=== PATIENT | female | born 1940 | race Caucasian/White ===

== ENCOUNTER 2021-03-16 04:48 | Inpatient (IN) | payer BC, MEDICARE ==
[~2021-03-16] VITALS: Ht 162.6 cm; Wt 76.3 kg
[2021-03-16] MEDS ORDERED: SODIUM CHLORIDE 0.9% 1,000 ML IV ONE (05:45)
[2021-03-16 06:27] LABS: CLARITY URINE CLEAR (CLEAR); COLOR URINE YELLOW (YELLOW); KETONES URINE NEGATIVE (NEGATIVE); LEUKOCYTE ESTERASE URINE 1+ (NEGATIVE); NITRITE URINE NEGATIVE (NEGATIVE); OCCULT BLOOD URINE NEGATIVE (NEGATIVE); PH URINE 7.5 (4.5-8.0); PROTEIN URINE NEGATIVE (NEGATIVE); SPECIFIC GRAVITY URINE 1.008 (1.005-1.030); UROBILINOGEN URINE 0.2 E.U./dL (0.2-1.0)
[2021-03-16 09:20] LABS: BASOPHILS % 0.6 % (0.0-2.0); EOSINOPHILS % 0.3 % (0.0-5.0); HEMOGLOBIN. 13.2 g/dL (12.0-16.0); LYMPHOCYTES % 19.8 % (20.0-50.0); MEAN CORPUSCULAR HEMOGLOBIN 30.6 pg (28.0-32.0); MEAN CORPUSCULAR VOLUME 92.8 fL (81.0-99.0); MEAN PLATELET VOLUME 10.7 fl (7.4-10.4); NEUTROPHILS % 72.3 % (40.0-76.0); PLATELET 104 x1000/uL (130-400); RED BLOOD CELL COUNT 4.31 mill/uL (4.2-5.4); RED CELL DISTRIBUTION WIDTH 13.1 % (11.6-14.6)
[2021-03-16 09:27] LABS: CHLORIDE 110 mEq/L (98-107)
[2021-03-16] MEDS ORDERED: CEFTRIAXONE 1 G PREMIX 50 ML IV ONE (10:15)
[2021-03-16] MEDS ORDERED: ENOXAPARIN 80MG/0.8ML SYR SUBCUT ONE (11:00)
[2021-03-16] MEDS ORDERED: ASPIRIN 81MG TABLET PO ONE (11:00)
[2021-03-16] MEDS ORDERED: ONDANSETRON HCL 4MG/2ML INJ IV PRN (13:15)
[2021-03-16] MEDS ORDERED: DOCUSATE SODIUM 100MG CAPSULE PO PRN (13:15)
[2021-03-16] MEDS ORDERED: NA PHOS,M-B/NA PHOS,DI-BA ENEMA 118ML PR PRN (13:15)
[2021-03-16] MEDS ORDERED: DIPHENHYDRAMINE 50MG/ML VIAL IV PRN (13:15)
[2021-03-16] MEDS ORDERED: HYDRALAZINE 20MG/ML VIAL IV PRN (13:15)
[2021-03-16] MEDS ORDERED: CEFTRIAXONE 1 G PREMIX 50 ML IV SCH ×2 (13:15→13:45)
[2021-03-16] MEDS ORDERED: ACETAMINOPHEN 650MG SUPP PR PRN (13:15)
[2021-03-16] MEDS ORDERED: HYDROCODONE/ACETAMINOPHEN 5/325MG TABLET PO PRN (13:15)
[2021-03-16] MEDS ORDERED: MORPHINE SULFATE 2 MG/ML CPJ (NOT FOR IM USE) IV PRN (13:15)
[2021-03-16] MEDS ORDERED: MAGNESIUM/ALUMINUM HYDROXIDE/SIMETHICONE 30ML UDC PO PRN (13:15)
[2021-03-16] MEDS ORDERED: ACETAMINOPHEN 325MG TABLET PO PRN (13:15)
[2021-03-16] MEDS ORDERED: IPRATROPIUM/ALBUTEROL 0.5-3(2.5)MG/3ML NEB NEB PRN (13:15)
[2021-03-16] MEDS ORDERED: GUAIFENESIN 200MG/10ML SUGAR FREE UDC PO PRN (13:15)
[2021-03-16] MEDS: FAMOTIDINE 20MG/2ML VIAL IV SCH (13:45)
[2021-03-16] MEDS: DEXT 5%/0.45% NACL 1000ML 1,000 ML IV SCH ×2 (13:45→22:31)
[2021-03-16] MEDS: AMLODIPINE 2.5MG TABLET PO SCH (15:08)
[2021-03-16] MEDS: NITROGLYCERIN OINT 1GM/INCH UDPKT TD SCH ×2 (15:08→22:31)
[2021-03-16] MEDS ORDERED: NALOXONE HCL 0.4MG/ML VIAL IV PRN (17:00)
[2021-03-16 17:11] LABS: INR 1.1; PROTHROMBIN TIME 11.4 sec (9.6-11.0)
[2021-03-16 17:22] LABS: CREATINE KINASE MB FRACTION 8.1 ng/mL (0.5-3.6)
[2021-03-16 18:44] LABS: *AMPHETAMINES SCREEN URINE NEGATIVE (NEGATIVE); *BARBITURATES SCREEN URINE NEGATIVE (NEGATIVE); *BENZODIAZEPINES SCREEN URINE NEGATIVE (NEGATIVE); *COCAINE SCREEN URINE NEGATIVE (NEGATIVE)
[2021-03-16 18:45] LABS: CANNABINOID URINE SCREEN NEGATIVE (NEGATIVE); METHADONE URINE SCREEN NEGATIVE (NEGATIVE); OPIATES URINE SCREEN NEGATIVE (NEGATIVE); PHENCYCLIDINE URINE SCREEN NEGATIVE (NEGATIVE)
[2021-03-16] MEDS ORDERED: ENOXAPARIN 30MG/0.3ML SYR SUBCUT SCH (21:00)
[2021-03-16 21:45] VITALS: BP 131/78
[2021-03-16 22:15] VITALS: BP 131/78
[2021-03-16] MEDS ORDERED: ENOXAPARIN 40MG/0.4ML SYR SUBCUT NR (23:00)
[2021-03-16] MEDS ORDERED: NEOM10SO7 EACH EAR (23:54)
[2021-03-16] MEDS ORDERED: ATEN50TA PO (23:54)
[2021-03-16] MEDS ORDERED: PANT20TA17 PO (23:54)
[2021-03-17] VITALS (13 sets, daily range): BP systolic 101–167; BP diastolic 58–92
[2021-03-17 00:50] LABS: CREATINE KINASE MB FRACTION 4.4 ng/mL (0.5-3.6)
[2021-03-17] MEDS: NITROGLYCERIN OINT 1GM/INCH UDPKT TD SCH ×3 (05:50→21:26)
[2021-03-17 07:36] LABS: BASOPHILS % 0.9 % (0.0-2.0); EOSINOPHILS % 2.6 % (0.0-5.0); HEMATOCRIT. 36.1 % (36.0-48.0); HEMOGLOBIN. 11.8 g/dL (12.0-16.0); LYMPHOCYTES % 34.5 % (20.0-50.0); MEAN CORPUSCULAR HEMOGLOBIN 30.5 pg (28.0-32.0); MEAN CORPUSCULAR VOLUME 93.1 fL (81.0-99.0); MEAN PLATELET VOLUME 12.1 fl (7.4-10.4); MONOCYTES % 8.7 % (2.0-8.0); NEUTROPHILS % 53.3 % (40.0-76.0); PLATELET 95 x1000/uL (130-400); RED BLOOD CELL COUNT 3.87 mill/uL (4.2-5.4); RED CELL DISTRIBUTION WIDTH 13.1 % (11.6-14.6)
[2021-03-17 08:16] LABS: CREATINE KINASE MB FRACTION 3.2 ng/mL (0.5-3.6)
[2021-03-17] MEDS ORDERED: SODIUM CHLORIDE 0.45% 1,000 ML IV SCH (08:45)
[2021-03-17] MEDS: FAMOTIDINE 20MG/2ML VIAL IV SCH (09:00)
[2021-03-17 10:21] LABS: CHLORIDE 111 mEq/L (98-107)
[2021-03-17] MEDS: ASPIRIN 81MG EC TABLET PO SCH (14:20)
[2021-03-17] MEDS: AMLODIPINE 2.5MG TABLET PO SCH ×2 (14:20→21:26)
[2021-03-17] MEDS: CLONIDINE 0.1MG TABLET PO PRN (14:21)
[2021-03-17] MEDS: CEFTRIAXONE 1,000 MG in DEXTROSE 5% WATER 50 ML IV SCH (14:33)
[2021-03-18] VITALS (11 sets, daily range): BP systolic 119–155; BP diastolic 64–92
[2021-03-18] MEDS: SODIUM CHLORIDE 0.45% 1,000 ML IV SCH ×2 (01:50→21:25)
[2021-03-18] MEDS: LORAZEPAM 0.5MG TABLET PO PRN ×2 (01:55→21:16)
[2021-03-18] MEDS: NITROGLYCERIN OINT 1GM/INCH UDPKT TD SCH ×3 (05:51→21:16)
[2021-03-18 06:43] LABS: CHLORIDE 111 mEq/L (98-107)
[2021-03-18 07:06] LABS: BASOPHILS % 0.8 % (0.0-2.0); HEMATOCRIT. 35.3 % (36.0-48.0); HEMOGLOBIN. 12.1 g/dL (12.0-16.0); LYMPHOCYTES % 36.8 % (20.0-50.0); MEAN CORPUSCULAR HEMOGLOBIN 31.7 pg (28.0-32.0); MEAN CORPUSCULAR VOLUME 92.6 fL (81.0-99.0); MEAN PLATELET VOLUME 11.2 fl (7.4-10.4); NEUTROPHILS % 49.4 % (40.0-76.0); PLATELET 83 x1000/uL (130-400); RED BLOOD CELL COUNT 3.81 mill/uL (4.2-5.4)
[2021-03-18] MEDS: ASPIRIN 81MG EC TABLET PO SCH (08:05)
[2021-03-18] MEDS: FAMOTIDINE 20MG TABLET PO SCH (08:06)
[2021-03-18] MEDS: AMLODIPINE 2.5MG TABLET PO SCH ×2 (08:06→21:16)
[2021-03-18] MEDS ORDERED: ASPIRIN/SOD BICARB/CITRIC ACID 324MG TAB EFF ONE (08:58)
[2021-03-18] MEDS: CEFTRIAXONE 1,000 MG in DEXTROSE 5% WATER 50 ML IV SCH (14:01)
[2021-03-18] MEDS: CLONIDINE 0.1MG TABLET PO PRN (14:13)
[2021-03-18] MEDS: METOPROLOL TARTRATE 25MG TABLET PO SCH (21:17)
[2021-03-18] MEDS: ATORVASTATIN CALCIUM 40MG TABLET PO SCH (21:17)
[2021-03-19] VITALS (11 sets, daily range): BP systolic 136–175; BP diastolic 67–107
[2021-03-19] MEDS ORDERED: SODIUM CHLORIDE 0.45% 1,000 ML IV ONE (06:00)
[2021-03-19] MEDS: NITROGLYCERIN OINT 1GM/INCH UDPKT TD SCH ×3 (06:06→21:06)
[2021-03-19] MEDS ORDERED: NITROGLYCERIN SPRAY/4.9GM CAN TL ONE (07:00)
[2021-03-19 07:55] LABS: BASOPHILS % 0.7 % (0.0-2.0); EOSINOPHILS % 3.4 % (0.0-5.0); HEMATOCRIT. 36.4 % (36.0-48.0); HEMOGLOBIN. 12.6 g/dL (12.0-16.0); LYMPHOCYTES % 32.1 % (20.0-50.0); MEAN CORPUSCULAR HEMOGLOBIN 31.9 pg (28.0-32.0); MEAN CORPUSCULAR VOLUME 91.7 fL (81.0-99.0); MEAN PLATELET VOLUME 10.7 fl (7.4-10.4); NEUTROPHILS % 54.8 % (40.0-76.0); PLATELET 90 x1000/uL (130-400); RED BLOOD CELL COUNT 3.97 mill/uL (4.2-5.4); RED CELL DISTRIBUTION WIDTH 12.9 % (11.6-14.6)
[2021-03-19 08:03] LABS: CHLORIDE 110 mEq/L (98-107)
[2021-03-19] MEDS: ASPIRIN 81MG EC TABLET PO SCH (09:22)
[2021-03-19] MEDS: AMLODIPINE 2.5MG TABLET PO SCH ×2 (09:23→21:05)
[2021-03-19] MEDS: METOPROLOL TARTRATE 25MG TABLET PO SCH ×2 (09:23→21:06)
[2021-03-19] MEDS: FAMOTIDINE 20MG TABLET PO SCH (09:23)
[2021-03-19] MEDS ORDERED: METOPROLOL TARTRATE 5MG/5ML VIAL IV ONE (11:26)
[2021-03-19] MEDS ORDERED: METOPROLOL TARTRATE 5MG/5ML VIAL IV SCH (11:30)
[2021-03-19] MEDS ORDERED: IOHEXOL-350 100 ML BOTTLE ONE (12:53)
[2021-03-19] MEDS: CEFTRIAXONE 1,000 MG in DEXTROSE 5% WATER 50 ML IV SCH (13:23)
[2021-03-19] MEDS ORDERED: TEMAZEPAM 15MG CAPSULE PO PRN (20:45)
[2021-03-19] MEDS: ATORVASTATIN CALCIUM 40MG TABLET PO SCH (21:04)
[2021-03-19] MEDS: SODIUM CHLORIDE 0.45% 1,000 ML IV SCH (21:44)
[2021-03-20 00:06] VITALS: BP 132/67
[2021-03-20 04:00] VITALS: BP 124/70
[2021-03-20] MEDS: NITROGLYCERIN OINT 1GM/INCH UDPKT TD SCH ×3 (05:20→21:27)
[2021-03-20 07:38] LABS: CHLORIDE 109 mEq/L (98-107)
[2021-03-20 08:00] VITALS: BP 115/75
[2021-03-20 08:26] LABS: EOSINOPHILS % 3.3 % (0.0-5.0); HEMOGLOBIN. 12.7 g/dL (12.0-16.0); LYMPHOCYTES % 34.1 % (20.0-50.0); MEAN CORPUSCULAR HEMOGLOBIN 31.6 pg (28.0-32.0); MEAN CORPUSCULAR VOLUME 94.4 fL (81.0-99.0); MEAN PLATELET VOLUME 11.3 fl (7.4-10.4); MONOCYTES % 9.6 % (2.0-8.0); PLATELET 97 x1000/uL (130-400); RED BLOOD CELL COUNT 4.03 mill/uL (4.2-5.4); RED CELL DISTRIBUTION WIDTH 13.3 % (11.6-14.6)
[2021-03-20] MEDS: AMLODIPINE 2.5MG TABLET PO SCH ×3 (09:00→21:29)
[2021-03-20] MEDS ORDERED: POTASSIUM CHLORIDE 20MEQ/PACKET PO NR (09:00)
[2021-03-20] MEDS: ASPIRIN 81MG EC TABLET PO SCH (10:04)
[2021-03-20] MEDS: METOPROLOL TARTRATE 25MG TABLET PO SCH ×2 (10:04→21:28)
[2021-03-20] MEDS: FAMOTIDINE 20MG TABLET PO SCH (10:05)
[2021-03-20 12:00] VITALS: BP 145/73
[2021-03-20] MEDS: CEFTRIAXONE 1,000 MG in DEXTROSE 5% WATER 50 ML IV SCH (15:17)
[2021-03-20] MEDS: SODIUM CHLORIDE 0.45% 1,000 ML IV SCH (15:17)
[2021-03-20] MEDS: CLOPIDOGREL 75MG TABLET PO SCH (15:18)
[2021-03-20 16:00] VITALS: BP 156/81
[2021-03-20 20:00] VITALS: BP 140/73
[2021-03-20] MEDS: ATORVASTATIN CALCIUM 40MG TABLET PO SCH (21:28)
[2021-03-21] VITALS (7 sets, daily range): BP systolic 105–159; BP diastolic 55–90
[2021-03-21] MEDS: NITROGLYCERIN OINT 1GM/INCH UDPKT TD SCH ×3 (05:20→21:49)
[2021-03-21] MEDS: AMLODIPINE 2.5MG TABLET PO SCH ×2 (10:38→21:48)
[2021-03-21] MEDS: METOPROLOL TARTRATE 25MG TABLET PO SCH ×2 (10:39→21:48)
[2021-03-21] MEDS: ASPIRIN 81MG EC TABLET PO SCH (10:39)
[2021-03-21] MEDS: FAMOTIDINE 20MG TABLET PO SCH (10:39)
[2021-03-21] MEDS: CLOPIDOGREL 75MG TABLET PO SCH (10:39)
[2021-03-21] MEDS: CEFTRIAXONE 1,000 MG in DEXTROSE 5% WATER 50 ML IV SCH (15:39)
[2021-03-21] MEDS: ATORVASTATIN CALCIUM 40MG TABLET PO SCH (21:47)
[2021-03-22] VITALS (7 sets, daily range): BP systolic 120–159; BP diastolic 69–82
[2021-03-22] MEDS: NITROGLYCERIN OINT 1GM/INCH UDPKT TD SCH ×3 (06:14→22:42)
[2021-03-22] MEDS: AMLODIPINE 2.5MG TABLET PO SCH ×2 (10:11→20:23)
[2021-03-22] MEDS: ASPIRIN 81MG EC TABLET PO SCH (10:11)
[2021-03-22] MEDS: CLOPIDOGREL 75MG TABLET PO SCH (10:12)
[2021-03-22] MEDS: FAMOTIDINE 20MG TABLET PO SCH (10:12)
[2021-03-22] MEDS: METOPROLOL TARTRATE 25MG TABLET PO SCH ×2 (10:12→20:24)
[2021-03-22] MEDS: CEFTRIAXONE 1,000 MG in DEXTROSE 5% WATER 50 ML IV SCH (13:59)
[2021-03-22] MEDS: ATORVASTATIN CALCIUM 40MG TABLET PO SCH (20:23)
== END 2021-03-22 22:55 | DRG 64 ==
LOC: ER 04:48 → 5EST 11:52 → EDBEDREQTM 11:56 → EDBEDREQSVC 11:56 → EDBEDREQ 11:56 → SUPCPDRO 14:10 → ENRESERV 19:59 → 5EST 03-17 02:06 → 8WST 03-19 16:21
PROVIDERS: ADMIT Internal Medicine; ATTEND Internal Medicine
PROC: 4A10X4Z Monitoring of Central Nervous Electrical Activity, External Approach (ICD-10-PCS; principal; 2021-03-19)
DX: I63.9 Cerebral infarction, unspecified (principal); I21.4 Non-ST elevation (NSTEMI) myocardial infarction; S42.301A Unspecified fracture of shaft of humerus, right arm, initial encounter for closed fracture; D68.9 Coagulation defect, unspecified; E44.1 Mild protein-calorie malnutrition; G81.91 Hemiplegia, unspecified affecting right dominant side; E86.0 Dehydration; I10 Essential (primary) hypertension; Z96.651 Presence of right artificial knee joint; G90.8 Other disorders of autonomic nervous system; R73.9 Hyperglycemia, unspecified; R74.01 Elevation of levels of liver transaminase levels; Z20.822 Contact with and (suspected) exposure to COVID-19; E16.2 Hypoglycemia, unspecified; I25.10 Atherosclerotic heart disease of native coronary artery without angina pectoris; X58.XXXA Exposure to other specified factors, initial encounter; Z86.73 Personal history of transient ischemic attack (TIA), and cerebral infarction without residual deficits; Z79.899 Other long term (current) drug therapy; Y93.89 Activity, other specified; Y92.89 Other specified places as the place of occurrence of the external cause; Y99.8 Other external cause status
CPT/HCPCS: 36415; 70551; 71045; 73200; 75571; 78582; 80048; 80053; 80061; 80076; 80305; 81003; 82550; 82553; 83036; 83735; 83880; 84443; 84484; 85025; 85379; 87426; 93005; 93306; 93880; 93970; 95816; 97110; 97112; 97116; 97163; 99291; A9558; J0696; J1650; J3490; J7030; J7042; J7060; Q9967